=== PATIENT | male | born 1970 | race Caucasian/White ===

== ENCOUNTER 2018-06-04 21:45 | Emergency (ER) | payer BC ==
--- NOTE | 2018-06-04 22:04 | ED ---
Psychiatric Complaint - HPI Summary HPI Summary: Pt. is a 48 y.o male who presents to the ER for MHE. Pt. lives at home with his and tonight had a severe "panic attack." Pt. notes he felt he was out of control. He has a history of anxiety/depression and is on lexapro. Past history of hypothyroidism. When ask if pt. is feeling suicidal he states "he would not put it that way." He has never been hospitalized for similar sxs. Pt. sees a therapist on a weekly basis. Symptoms are moderate in severity. Pt. states he is feeling a bit better since being in ED. He otherwise denies complaints. Pt. did not offer a lot of information. - History Of Current Complaint Chief Complaint: EDMentalHealth Time Seen by Provider: 06/04/18 22:01 Hx Obtained From: Patient - Allergies/Home Medications Allergies/Adverse Reactions: Allergies Allergy/AdvReac Type Severity Reaction Status Date / Time No Known Allergies Allergy Verified 06/04/18 21:50 Home Medications: Home Medications Escitalopram (NF) [Lexapro 10 mg (NF)] 10 mg PO DAILY 06/04/18 [History Confirmed 06/04/18] Levothyroxine TAB* [Synthroid TAB*] 150 mcg PO DAILY 06/04/18 [History Confirmed 06/04/18] PMH/Surg Hx/FS Hx/Imm Hx Previously Healthy: Yes Infectious Disease History: No Infectious Disease History: Denies: Traveled Outside the [place] in Last 30 Days - Family History Known Family History: Positive: Non-Contributory - Social History Occupation: Employed Full-time Lives: With Family Alcohol Use: Occasionally Substance Use Type: Reports: None Smoking Status (MU): Never Smoked Tobacco Review of Systems Positive: Anxious All Other Systems Reviewed And Are Negative: Yes Physical Exam Triage Information Reviewed: Yes Vital Signs On Initial Exam: Initial Vitals Temp Pulse Resp BP Pulse Ox 97.0 F 83 18 126/78 100 06/04/18 21:47 06/04/18 21:47 06/04/18 21:47 06/04/18 21:47 06/04/18 21:47 Vital Signs Reviewed: Yes Appearance: Positive: Well-Appearing - Pt. sitting up in bed in NAD. present. Skin: Positive: Warm, Dry Head/Face: Positive: Normal Head/Face Inspection Eyes: Positive: Normal, EOMI Neck: Positive: Supple Neurological: Positive: Normal, CN Intact II-III Psychiatric: Positive: Anxious Diagnostics - Vital Signs Vital Signs Temp Pulse Resp BP Pulse Ox 06/04/18 21:47 97.0 F 83 18 126/78 100 - Laboratory Result Diagrams: 06/04/18 22:06 06/04/18 22:06 Lab Statement: Any lab studies that have been ordered have been reviewed, and results considered in the medical decision making process. Course/Dx - Course Assessment/Plan: Pt. presenting for worsening anxiety. He denies SI. He is resting calm on bed and present at bedside. MHE ordered. Pt. evaluated by therapist and psychiatrist was consulted. Psychiatrist does not see need for inpt. treatment at this time. Pt. and his are comfortable being dc home. Pt. has an apt. with his therapist tomorrow. To return to ER if sxs change or worsn. - Differential Dx/Clinical Impression Differential Diagnosis/HQI/PQRI: Positive: Acute Psychosis, Anxiety, Depression , Suicidal Ideation Provider Diagnosis: Anxiety Discharge - Sign-Out/Discharge Documenting (check all that apply): Patient Departure - Discharge Plan Condition: Improved Disposition: HOME Referrals: Kishor Castano NP [Primary Care Provider] - Additional Instructions: Per completion of a mental health evaluation, you are cleared for release and do not require inpatient psychiatric hospitalization at this time. Please go to nearest emergency room or call 911 if safety concerns arise or condition worsens. Important Phone Numbers: [facility] [phone] Suicide Prevention and Crisis Services........................ [phone] National Suicide Prevention Lifeline............................ 763-516-CFMV (0751) [facility]....................... [phone] Alcoholics Anonymous............................................... [facility].............. [phone] [place] [employer].............................................. - Billing Disposition and Condition Condition: IMPROVED Disposition: Home
[2018-06-04 22:21] LABS: ABS Basophils 0 10^3/ul (0-0.2); ABS Eosinophils 0 10^3/ul (0-0.6); ABS Lymphocytes 1.3 10^3/ul (1.0-4.8); ABS Monocytes 0.5 10^3/ul (0-0.8); ABS Neutrophils 9.7 10^3/ul (1.5-7.7); ABS Nucleated RBC 0 10^3/ul; Eosinophil % 0.4 % (0-6); Hematocrit 41 % (42-52); Hemoglobin 14.4 g/dl (14.0-18.0); Lymphocyte % 10.8 % (25-47); Mean Corpuscular HGB Conc 35 g/dl (31-36); Mean Corpuscular Hemoglobin 33 pg (27-31); Mean Corpuscular Volume 92 fL (80-94); Mean Platelet Volume 8.2 fL (7.4-10.4); Nucleated Red Blood Cells % 0; Platelet Count 220 10^3/ul (150-450); Red Blood Count 4.42 10^6/ul (4.00-5.40); Red Cell Distribution Width 13 % (10.5-15); White Blood Count 11.6 10^3/ul (3.5-10.8)
[2018-06-04 22:34] LABS: EGFR Non-African American 85.7 (>60)
[2018-06-05 00:36] VITALS: BP 113/69
== END 2018-06-05 00:36 | disposition home or self-care (01) ==
LOC: ED 21:45
DX: F41.9 Anxiety disorder, unspecified (principal)
CPT/HCPCS: 36415; 80053; 80320; 80329; 84443; 85025; 93005; 99284; G0480